=== PATIENT | female | born 1935 | race Caucasian/White ===

== ENCOUNTER → 2016-10-05 | Outpatient (CLI) | payer MEDICARE, OTHER, MEDICAID ==
[~2016-10-05] MED LIST: ASPIRIN (CHILDR81 MG PO; BENADRYL12.5 MG/5 PO; BENADRYL25 MG PO; CALCIUM 600+D1 EAC2 PO; COD LIVER OIL1 EACH PO; COLACE100 MG PO; ELIQUIS5 MG PO; FISH OIL1000 MG PO; FLECAINIDE ACET50 MG PO; GLUCOSAMINE CH1 EAC6 PO; MIRALAX17 GM PO; NEURONTIN300 MG PO; ONE DAILY1 EACH PO; THERA-VITE W/ B1 TAB PO; TYLENOL325 MG PO; ZESTRIL40 MG PO; [UNRECOGNIZED DRUG - OTHER] PO
[2016-10-05 09:52] LABS: BILIRUBIN URINE NEGATIVE (NEGATIVE); BLOOD URINE NEGATIVE /UL (NEGATIVE); COLOR URINE YELLOW (YELLOW); GLUCOSE URINE NEGATIVE (NEGATIVE); KETONE URINE NEGATIVE (NEGATIVE); LEUKOCYTES URINE NEGATIVE /UL (NEGATIVE); NITRITE URINE NEGATIVE (NEGATIVE); PROTEIN URINE NEGATIVE (NEGATIVE); TURBIDITY URINE CLEAR (CLEAR); UROBILINOGEN URINE NORMAL (NORMAL)
== END | disposition disaster alternative care site (69) ==
PROVIDERS: Family Medicine
DX: R41.0 Disorientation, unspecified (principal)

== ENCOUNTER 2016-10-06 13:31 | Emergency (ER) | payer MEDICARE, OTHER, MEDICAID ==
--- NOTE | ~2016-10-06 | ER ---
PATIENT'S NAME: DAYO CHING [facility] AGE: 81 Y [address] ROOM: [place] [address] LOCATION: ED ADMIT DATE: 10/06/2016 ER/Outpatient Report DISCHARGE DATE: 10/06/2016 FAMILY PHYSICIAN: Ramiro Cody MD ATTENDING PHYSICIAN: Lacie Hernández Time of Arrival: 1331 hours. Time Seen: 1350 hours. IDENTIFICATION: An 81-year-old female. CHIEF COMPLAINT: Arm heaviness. HISTORY OF PRESENT ILLNESS: The patient is an 81-year-old female with dementia from [facility]. She just has had some arm heaviness, has not been her usual self and complaining of stomach upset according to her granddaughter. She herself has none of those complaints at this time. She said she is currently pain free. She was here on September 17, 2016, with a foot injury, no fracture, although she did tell me it was broken, but when I reviewed the records and the radiology report, she did not have a fracture. She has an Calixto wrap on that foot. She is ambulatory. She has not lost weight since that visit. ALLERGIES: SULFA. CURRENT MEDICATIONS: 1. Aspirin 81 mg daily. 2. Atorvastatin 40 mg daily. 3. Docusate 100 mg b.i.d. 4. Eliquis 5 mg b.i.d. 5. Epsom salts once daily. 6. Flecainide 50 mg twice daily. 7. Gabapentin 300 mg twice daily. 8. Lisinopril/hydrochlorothiazide 20/12.5 daily. 9. Multivitamin daily. 10. Vitamin D with calcium daily. 11. MiraLAX 17 g daily. MEDICAL PROBLEMS: 1. Hypertension. 2. Chronic atrial fibrillation. 3. Dementia. PATIENT'S NAME: [facility] AGE: 81 Y [address] ROOM: [place] [address] LOCATION: ED ADMIT DATE: 10/06/2016 ER/Outpatient Report DISCHARGE DATE: 10/06/2016 FAMILY PHYSICIAN: Ramiro Cody MD ATTENDING PHYSICIAN: Lacie Hernández PRIOR SURGERIES: Unknown. SOCIAL HISTORY: The patient resides at [facility]. Tobacco use, denies. Alcohol use, denies. Drug use, denies. REVIEW OF SYSTEMS: All systems reviewed and negative other than what is noted in the HPI. The only other thing the granddaughter reported that the patient has not been sleeping well for several weeks. She has had some sundowner. She is not eating well and just in general did not feel well this morning. PHYSICAL EXAMINATION: VITAL SIGNS: Weight 86.4 kg. Blood pressure 170/81, pulse 68, respirations 16, temperature 96.7, and saturations 97%. Recheck blood pressure 164/84. GENERAL: An 81-year-old female, in no acute distress. HEENT: Unremarkable. Eyes: Pupils are equal and reactive to light and accommodation. Extraocular movements intact. Nose: Mucosa pink. No lesions. Mouth: No lesions. Pharynx benign. NECK: Supple. No lymphadenopathy. No nuchal rigidity. LUNGS: Clear to auscultation. Breath sounds are equal. No rhonchi, wheezes, or rales. HEART: Regular rate and rhythm. No murmur, rub, or gallop. ABDOMEN: Bowel sounds present. Soft, nondistended. No hepatosplenomegaly. No palpable masses. Nontender. SKIN: [place], warm, and dry. No lesions or rashes noted. NEURO: The patient is alert. She is oriented. Cranial nerves 2 through 12 are grossly intact. Motor strength 5/5 throughout. Sensation is intact to light touch. She has no focal deficit. LABORATORY DATA: EKG: Atrial fibrillation at 84 beats per minute. No acute ST elevation or depression. Cath UA negative. Sodium 133, potassium 3.9, chloride 96, CO2 of 28, BUN 15, creatinine 1.0, blood sugar 97. Liver enzymes normal. Magnesium 2.1. CK 58, MB 0.6. Troponin-I less than 0.040. ProBNP 387. Hemoglobin 14.1, hematocrit 41.7, platelets 292, white count 8.2 with a normal differential. One-view chest x-ray, no acute process. Pending radiology over- read. IMPRESSION AND PLAN: 1. Normal exam. X-rays, labs, and EKGs are unremarkable. 2. Chronic atrial fibrillation. 3. Complaints of abdominal pain. No acute abdominal pain on examination PATIENT'S NAME: DAYO CHING [facility] AGE: 81 Y [address] ROOM: [place], [place] [address] LOCATION: [facility] ADMIT DATE: 10/06/2016 ER/Outpatient Report DISCHARGE DATE: 10/06/2016 FAMILY PHYSICIAN: Ramiro Cody MD ATTENDING PHYSICIAN: Lacie Hernández here. No weight loss. Labs are normal. Urine is negative. Plan for followup with Dr. Cody as scheduled. Follow up sooner if any problems or concerns. 4. Chronic atrial fibrillation, rate controlled, on Eliquis for anticoagulation. Also on flecainide and managed by Dr. Govea at [facility]. LACIE HERNÁNDEZ MD CAR/modl /[id number] d: 10/06/16 2306 t: 10/20/16 0701, OUTPATIENT REPORT
[2016-10-06 14:32] LABS: BASOPHIL # 0.1 K/uL (0.0-0.2); BASOPHIL % 0.9 %; EOSINOPHIL # 0.3 K/uL (0.0-0.5); EOSINOPHIL % 3.2 %; HEMATOCRIT 41.7 % (30.0-46.0); HEMOGLOBIN 14.1 g/dL (10.0-15.0); IMMATURE GRANULOCYTE # 0.1 K/uL (0.0-0.3); IMMATURE GRANULOCYTE % 0.6 %; LYMPHOCYTE # 1.6 K/uL (0.8-4.0); LYMPHOCYTE % 19.7 %; MCHC 33.8 gm/dL (32.0-36.5); MCV 88.7 fl (83.0-98.0); MONOCYTE # 1.2 K/uL (0.0-1.0); MONOCYTE % 14.1 %; MPV 9.7 fl (9.4-12.4); NEUTROPHIL # (ANC) 5.1 K/uL (1.8-7.8); NEUTROPHIL % 61.5 %; NRBC % 0 /100WBC (0-0.00); PLATELET COUNT 292 K/uL (150-450); RDW-CV 12.3 % (11.9-14.6); WBC 8.2 K/uL (4.0-11.0)
[2016-10-06 14:44] LABS: INR - (THERAPEUTIC) 1.1 (0.9-1.1); PROTIME 11.4 SECONDS (9.6-11.1); PTT 29 SECONDS (25-32)
[2016-10-06 14:53] LABS: ALBUMIN 3.6 gm/dL (3.5-5.0); ALK PHOS 63 IU/L (33-138); ALT 18 IU/L (12-78); ANION GAP 12.9 (10.0-19.0); AST 14 IU/L (10-40); BLOOD UREA NITROGEN 15 mg/dL (6-24); CALCIUM 8.6 mg/dL (8.5-10.5); CHLORIDE 96 mMol/L (96-110); CO2 28 mMol/L (22-32); CPK 58 IU/L (21-215); ESTIMATED GFR (MDRD EQUATION) 53; MAGNESIUM 2.1 mg/dL (1.3-2.6); POTASSIUM 3.9 mMol/L (3.7-5.1); SODIUM 133 mMol/L (135-145); TOTAL BILIRUBIN 0.4 mg/dL (0.0-1.5); TOTAL PROTEIN 6.8 g/dL (6.0-8.4)
[2016-10-06 15:22] LABS: BILIRUBIN URINE NEGATIVE (NEGATIVE); BLOOD URINE NEGATIVE /UL (NEGATIVE); GLUCOSE URINE NEGATIVE (NEGATIVE); KETONE URINE NEGATIVE (NEGATIVE); LEUKOCYTES URINE NEGATIVE /UL (NEGATIVE); NITRITE URINE NEGATIVE (NEGATIVE); PH URINE 6.5 (4.0-8.0); PROTEIN URINE NEGATIVE (NEGATIVE); UROBILINOGEN URINE NORMAL (NORMAL)
[2016-10-06 15:23] LABS: COLOR URINE YELLOW (YELLOW); TURBIDITY URINE CLEAR (CLEAR)
== END 2016-10-06 15:42 | disposition disaster alternative care site (69) ==
LOC: GMED 13:31
PROVIDERS: Family Medicine
DX: R10.9 Unspecified abdominal pain (principal); I48.2 Chronic atrial fibrillation; I10 Essential (primary) hypertension; F03.90 Unspecified dementia, unspecified severity, without behavioral disturbance, psychotic disturbance, mood disturbance, and anxiety; Z79.01 Long term (current) use of anticoagulants; Z88.2 Allergy status to sulfonamides; Z79.82 Long term (current) use of aspirin; Z79.899 Other long term (current) drug therapy

== ENCOUNTER → 2017-01-19 | Outpatient (CLI) | payer MEDICARE, OTHER, MEDICAID | END | disposition disaster alternative care site (69) | LOC: GRAD 01-11 16:00 | DX: R41.3 Other amnesia (principal); G93.9 Disorder of brain, unspecified; Z86.73 Personal history of transient ischemic attack (TIA), and cerebral infarction without residual deficits | CPT/HCPCS: A9577 ==